=== PATIENT | male | born 1945 | race Caucasian/White ===

== ENCOUNTER → 2016-09-02 | Outpatient (CLI) | payer OTHER ==
[~2016-09-02] MED LIST: FLM4 PO; PRAV20TA PO
[2016-09-02 13:39] LABS: BLOOD UREA NITROGEN 19 mg/dl (7-18); CALCIUM 8.9 mg/dl (8.5-10.1); CARBON DIOXIDE 31 mmol/L (21-32); CHLORIDE 104 mmol/L (98-107); CREATININE 0.92 mg/dl (0.60-1.40); GLUCOSE 129 mg/dl (70-99); PHOSPHORUS 1.7 mg/dl (2.5-4.9); SODIUM 141 mmol/L (136-145)
[2016-09-02 14:13] LABS: ESTIMATED AVERAGE GLUCOSE 123 mg/dl; HA1C FLAG Normal (Normal)
== END | disposition home or self-care (01) ==
LOC: C.LABMFLN 09:05
PROVIDERS: ATTEND Family Medicine
DX: Z11.59 Encounter for screening for other viral diseases (principal); E11.9 Type 2 diabetes mellitus without complications

== ENCOUNTER → 2017-03-04 | Outpatient (CLI) | payer OTHER ==
[2017-03-04 13:07] LABS: BASO % 0.6 %; BASO ABS # 0.03 K/uL (0-0.2); COMPLETE YES; EOS % 4.4 %; HEMATOCRIT 44.8 % (42-52); LYMPH % 31.8 %; LYMPH ABS # 1.67 K/uL (1.2-3.4); MEAN CELL VOLUME 95.1 fL (80-100); MEAN CORPUSCULAR HEMOGLOBIN 31.4 pg (25-34); MEAN PLATELET VOLUME 9.1 fL (7.4-10.4); NEUT % 55.2 %; PLATELET COUNT 231 K/uL (130-400); RED BLOOD COUNT 4.71 M/uL (4.7-6.1); WHITE BLOOD COUNT 5.25 K/uL (4.8-10.8)
[2017-03-04 13:48] LABS: ESTIMATED AVERAGE GLUCOSE 123 mg/dl; HA1C FLAG Normal (Normal)
[2017-03-04 13:53] LABS: ALT/SGPT 24 U/L (12-78); BLOOD UREA NITROGEN 19 mg/dl (7-18); BUN/CREATININE RATIO 21.9 (10-20); CALCIUM 9.1 mg/dl (8.5-10.1); CARBON DIOXIDE 29 mmol/L (21-32); CHLORIDE 106 mmol/L (98-107); CHOLESTEROL 164 mg/dl (0-200); CREATININE 0.88 mg/dl (0.60-1.40); GLUCOSE 122 mg/dl (70-99); POTASSIUM 3.7 mmol/L (3.5-5.1); SODIUM 141 mmol/L (136-145); TRIGLYCERIDES 107 mg/dl (0-150); VERY LOW DENSITY LIPOPROT CALC 21 mg/dl
[2017-03-04 13:56] LABS: ALB/GLOB RATIO 1.1 (0.9-2); ALKALINE PHOSPHATASE 51 U/L (45-117); AST/SGOT 17 U/L (15-37); CHOLESTEROL/HDL RATIO 3.4; HDL CHOLESTEROL 48 mg/dl; LDL CHOLESTEROL CALCULATED 95 mg/dl
[2017-03-04 13:59] LABS: RATIO 13.7 mcg/mg (0-30.0)
== END | disposition home or self-care (01) ==
LOC: C.LABMFLN 08:13
PROVIDERS: ATTEND Family Medicine
DX: E11.9 Type 2 diabetes mellitus without complications (principal); E78.5 Hyperlipidemia, unspecified

== ENCOUNTER → 2017-04-24 | Outpatient (CLI) | payer OTHER ==
--- NOTE | 2017-05-04 11:09 | CODING QUERY MEDICAL NECESSITY ---
CQSUPPORTING DIAGNOSIS NEEDED A supporting diagnosis is required for the test/procedure performed on this patient in order for us to be reimbursed by the patient's insurance. Please provide a supporting diagnosis for the following test/procedure listed below next to the test name along with your signature. *If there is no additional diagnosis for this patient that would support the following test/procedure please document that below next to the test/procedure. Test(s)/Procedure(s) that require a supporting diagnosis: DOS 04/24/17 PROSTATE SPECIFIC (PSA) TEST Provider Signature: Date: Thank you Toma Bello [facility] Once completed, please kindly fax back to [phone] For questions please call [phone]
== END | disposition home or self-care (01) ==
LOC: C.LABMFLN 08:08
PROVIDERS: ATTEND Urology
DX: R39.9 Unspecified symptoms and signs involving the genitourinary system (principal)

== ENCOUNTER → 2017-09-09 | Outpatient (CLI) | payer OTHER ==
[2017-09-09 13:18] LABS: ALBUMIN 3.9 gm/dl (3.4-5.0); BLOOD UREA NITROGEN 23 mg/dl (7-18); CALCIUM 9.6 mg/dl (8.5-10.1); CARBON DIOXIDE 30 mmol/L (21-32); CREATININE 0.81 mg/dl (0.60-1.40); GLUCOSE 120 mg/dl (70-99); PHOSPHORUS 2.2 mg/dl (2.5-4.9); POTASSIUM 4.4 mmol/L (3.5-5.1); SODIUM 141 mmol/L (136-145)
== END | disposition home or self-care (01) ==
LOC: C.LABMFLN 07:58
PROVIDERS: ATTEND Family Medicine
DX: E11.9 Type 2 diabetes mellitus without complications (principal)

== ENCOUNTER → 2018-03-11 | Outpatient (CLI) | payer OTHER ==
[2018-03-11 13:19] LABS: BASO % 0.4 %; BASO ABS # 0.02 K/uL (0-0.2); EOS % 1.5 %; EOS ABS # 0.08 K/uL (0-0.5); HEMOGLOBIN 14.2 g/dL (14.0-18.0); IG# 0.01 K/uL (0.00-0.02); LYMPH ABS # 1.21 K/uL (1.2-3.4); MEAN CELL VOLUME 95.3 fL (80-100); MEAN CORPUSCULAR HEMOGLOBIN 31.5 pg (25-34); MEAN PLATELET VOLUME 9.5 fL (7.4-10.4); MONO ABS # 0.47 K/uL (0.11-0.59); NEUT % 65.9 %; NEUT ABS # 3.46 K/uL (1.4-6.5); PLATELET COUNT 231 K/uL (130-400); RED CELL DISTRIBUTION WIDTH CV 12.7 % (11.5-14.5); RED CELL DISTRIBUTION WIDTH SD 44.3 fL (36.4-46.3); WHITE BLOOD COUNT 5.25 K/uL (4.8-10.8)
[2018-03-11 13:58] LABS: ALBUMIN 3.8 gm/dl (3.4-5.0); ALKALINE PHOSPHATASE 50 U/L (45-117); ALT/SGPT 20 U/L (12-78); AST/SGOT 18 U/L (15-37); BLOOD UREA NITROGEN 17 mg/dl (7-18); CARBON DIOXIDE 31 mmol/L (21-32); CHOLESTEROL 153 mg/dl (0-200); CREATININE 0.82 mg/dl (0.60-1.40); GLUCOSE 110 mg/dl (70-99); LDL CHOLESTEROL CALCULATED 85 mg/dl; SODIUM 141 mmol/L (136-145); TOTAL PROTEIN 6.9 gm/dl (6.4-8.2)
== END | disposition home or self-care (01) ==
LOC: C.LABMFLN 08:18
PROVIDERS: ATTEND Family Medicine
DX: E11.9 Type 2 diabetes mellitus without complications (principal); E78.5 Hyperlipidemia, unspecified

== ENCOUNTER → 2018-04-14 | Outpatient (CLI) | payer OTHER | END | disposition home or self-care (01) | LOC: C.LABMFLN 06:54 | PROVIDERS: ATTEND Urology | DX: C61 Malignant neoplasm of prostate (principal) ==